=== PATIENT | female | born 1995 | race Caucasian/White ===

== ENCOUNTER 2018-10-28 08:17 | Emergency (ER) | payer SELFPAY ==
[2018-10-28] MEDS: LIDOCAINE/MYLANTA 40 ML BTL PO (08:47)
== END 2018-10-28 09:19 | disposition home or self-care (01) ==
LOC: FTE 09:19
DX: R11.2 Nausea with vomiting, unspecified (principal); R19.7 Diarrhea, unspecified; R10.9 Unspecified abdominal pain
CPT/HCPCS: 81025; 99283